=== PATIENT | male | born 1990 | race Caucasian/White ===

== ENCOUNTER → 2018-01-24 | Outpatient (CLI) | payer OTHER ==
[2018-01-24 09:15] LABS: BASOPHIL % 0.3 % (0-2); PLATELET COUNT 203 x10^3mcL (130-400); RED CELL DISTRIBUTION WIDTH 12.7 % (11.5-14.5)
[2018-01-24 09:21] LABS: ALBUMIN 4.3 g/dL (3.4-5.0); ALKALINE PHOSPHATASE 61 U/L (46-116); ALT/SGPT 22 U/L (16-63); AST/SGOT 17 U/L (15-37); BILIRUBIN TOTAL 0.82 mg/dL (0.20-1.00); CALCIUM 9.1 mg/dL (8.5-10.1); CARBON DIOXIDE 31.9 mmol/L (21-32); CHLORIDE SERUM 103 mmol/L (98-107); CHOLESTEROL 171 mg/dL (<200); CREATININE SERUM 1.1 mg/dL (0.7-1.3); GFR1 > 60 mL/min; GLUCOSE SERUM 88 mg/dL (74-106); POTASSIUM SERUM 4.3 mmol/L (3.5-5.1); SODIUM SERUM 141 mmol/L (136-145); TRIGLYCERIDES 64 mg/dL (<150)
[2018-01-24 09:22] LABS: CHOLESTEROL/HDL RATIO 2.8; HDL CHOLESTEROL 62 mg/dL (40-60)
[2018-01-24 09:28] LABS: FREE T4 1.06 ng/dL (0.76-1.46); T3 TOTAL 1.42 ng/mL
== END | disposition home or self-care (01) ==
LOC: LB 08:34
PROVIDERS: Family Medicine
DX: Z00.00 Encounter for general adult medical examination without abnormal findings (principal)
CPT/HCPCS: 84439

== ENCOUNTER → 2018-03-03 | Outpatient (CLI) | payer OTHER | END | disposition home or self-care (01) | LOC: US 16:59 | PROC: BV44ZZZ Ultrasonography of Scrotum (ICD-10-PCS; principal; 2018-03-03) | DX: N50.9 Disorder of male genital organs, unspecified (principal) | CPT/HCPCS: Q0092 ==

== ENCOUNTER 2018-07-12 17:12 | Emergency (ER) | payer OTHER ==
[~2018-07-12] VITALS: Ht 180.3 cm; Wt 65.8 kg
[2018-07-12 17:20] VITALS: Ht 180.3 cm; Wt 65.8 kg
[2018-07-12 18:14] LABS: BASOPHIL % 0.1 % (0-2); PLATELET COUNT 207 x10^3mcL (130-400); RED CELL DISTRIBUTION WIDTH 12.5 % (11.5-14.5)
[2018-07-12 18:22] LABS: CALCIUM 8.8 mg/dL (8.5-10.1); CARBON DIOXIDE 29.1 mmol/L (21-32); CHLORIDE SERUM 100 mmol/L (98-107); CREATININE SERUM 1.3 mg/dL (0.7-1.3); GFR1 > 60 mL/min; GLUCOSE SERUM 115 mg/dL (74-106); POTASSIUM SERUM 3.4 mmol/L (3.5-5.1); SODIUM SERUM 138 mmol/L (136-145)
[2018-07-12 18:27] LABS: ALBUMIN 4.3 g/dL (3.4-5.0); ALKALINE PHOSPHATASE 68 U/L (46-116); ALT/SGPT 22 U/L (16-63); AST/SGOT 11 U/L (15-37); BILIRUBIN TOTAL 0.83 mg/dL (0.20-1.00); TOTAL PROTEIN, SERUM 7.8 g/dL (6.4-8.2)
[2018-07-12 19:04] VITALS: BP 119/74
[2018-07-12 19:12] LABS: microscopic required? NO
[2018-07-12 19:36] LABS: UA SPECIFIC GRAVITY 1.015 (1.005-1.035); urine erythrocyte NEGATIVE (NEGATIVE)
== END 2018-07-12 20:12 | disposition home or self-care (01) ==
LOC: ED 17:12
PROVIDERS: Emergency Medicine
DX: B34.9 Viral infection, unspecified (principal)
CPT/HCPCS: 36415; 87804; J7030; Q0092